=== PATIENT | female | born 1970 | race Caucasian/White ===

== ENCOUNTER 2018-11-07 18:56 | Emergency (ER) | payer OTHER ==
[~2018-11-07] VITALS: Ht 157.5 cm; Wt 72.6 kg
[~2018-11-07 18:56] MED LIST: ACIPHEX 20 MG T20 MG PO; CENTRUM SILVER1 EAC4 PO; COLACE100 MG PO; CYMBALTA60 MG PO; DICLOFENAC SODI25 MG PO; ENDOCET 10-3251 EACH PO; FISH OIL 1,001000 M2 PO; FLEXERIL PO; KEFLEX500 M1 PO; LEVOTHYROXIN0.137 M1 PO; SENNA LAXATIVE1 EACH PO; SYNTHROID125 MCG PO; TRAMADOL 50 MG50 MG PO; XANAX 0.5 MG0.5 MG PO; XARELTO10 MG PO
[2018-11-07] MEDS ORDERED: NASACORT10.8 ML NASAL (19:11)
[2018-11-07] MEDS ORDERED: ZYRTEC10 M5 PO (19:11)
[2018-11-07] MEDS ORDERED: MOBIC7.5 MG PO (21:59)
[2018-11-07] MEDS ORDERED: ROBAXIN 750 MG750 MG PO (21:59)
[2018-11-07] MEDS ORDERED: ACETAMINOPHEN-1 EAC1 PO (21:59)
[2018-11-07 22:45] VITALS: BP 145/98
== END 2018-11-07 22:46 | disposition home or self-care (01) ==
LOC: M.ERS 18:56
DX: M25.551 Pain in right hip (principal); M54.5 Low back pain; E03.9 Hypothyroidism, unspecified; K21.9 Gastro-esophageal reflux disease without esophagitis; F32.9 Major depressive disorder, single episode, unspecified; F17.210 Nicotine dependence, cigarettes, uncomplicated; Z98.890 Other specified postprocedural states; Z90.49 Acquired absence of other specified parts of digestive tract; Z90.710 Acquired absence of both cervix and uterus; Z88.5 Allergy status to narcotic agent; Z88.6 Allergy status to analgesic agent